=== PATIENT | female | born 1975 | race Caucasian/White ===

== ENCOUNTER 2022-07-03 14:10 | Outpatient (CLI) | payer MEDICAID ==
--- NOTE | 2022-07-03 15:01 | XRAY Report ---
PROCEDURE: Knee 3 View LT INDICATIONS: XRAY FOR KNEE AND WRIST TECHNIQUE: 3 views of the left knee(s) were acquired. COMPARISON: None. FINDINGS: Bones: No fractures or dislocations. Joint spaces appear preserved. No suspicious bony lesions. Soft tissues: No joint effusion. No suspicious soft tissue calcifications. IMPRESSION: No significant osseous abnormality. MRI could be considered for further evaluation if clinically indicated. Reviewed by: Ihsan Alvarado MD on 07/03/2022 3:00 PM PDT Approved by: Ihsan Alvarado MD on 07/03/2022 3:00 PM PDT Station ID: [id number]
--- NOTE | 2022-07-03 16:16 | XRAY Report ---
PROCEDURE: Wrist 3 View RT INDICATIONS: XRAY FOR KNEE AND WRIST TECHNIQUE: 3 views of the wrist were acquired. COMPARISON: None FINDINGS: Bones: No fractures or dislocations. No suspicious bony lesions. Scaphoid view: Not requested Soft tissues: No suspicious soft tissue calcifications. IMPRESSION: No acute fracture. No osseous lesion. If symptoms and/or clinical suspicion for pathology continue, f urther assessment with repeat plain films, or advanced imaging (e.g., CT, MRI, or bone scan) is recom mended for further assessment. Reviewed by: Lindsey Prather MD on 07/03/2022 4:15 PM PDT Approved by: Lindsey Prather MD on 07/03/2022 4:15 PM PDT Station ID: [id number]
== END 2022-07-03 14:11 | disposition home or self-care (01) ==
LOC: DI 14:10
PROVIDERS: ATTEND Physician Assistant
DX: M25.531 Pain in right wrist (principal); M25.562 Pain in left knee